=== PATIENT | female | born 1985 | race Caucasian/White ===

== ENCOUNTER 2023-11-28 07:38 | Inpatient (IN) ==
--- NOTE | 2023-11-28 10:26 | History & Physical Report ---
Date of Service November 28, 2023 Assessment & Plan (1) Encounter for induction of labor: (2) Insulin controlled gestational diabetes mellitus (GDM) during : (3) resulting from in vitro fertilization, antepartum: (4) Elderly multigravida: Plan admit, iv, labs. carrion balloon in place. start pit and then plan arom when appropriate. bsg now and q2 in active labor. fhts categ 1. Admission and Anticipated Discharge Date Admission Date: November 28, 2023 History of Present Illness Chief Complaint: induction Primary Care Provider: Britt Villafuerte MD 38yo at 39wks ega presents to LD for planned induction. Patient denies rom, vb. +FM. No ctx. PNC c/b 1. IVF 2. AMA age >40 3. GDM on insulin 4. Polyhydramnios PNL rhpos, ri, gbs neg OBH: x 1 GYNH: nl paps no stds. Allergies Allergy/AdvReac Type Severity Reaction Status Date / Time amoxicillin Allergy Unknown Rash Verified 11/27/23 13:17 Home Medications Medication Instructions Recorded Confirmed Type vit no.95-ferrous 1 tab PO DAILY 02/01/22 11/27/23 History fumarate 28 mg-folic acid 800 mcg tablet () doxylamine 10 mg-pyridoxine (vit 1 tab PO BID #60 tabs 05/19/23 11/27/23 Rx B6) 10 mg tablet,delayed release (Diclegis) promethazine 12.5 mg rectal 12.5 mg MO Q6H PRN nausea and 05/19/23 11/27/23 Rx suppository vomiting #12 ea acetone (urine) test (Ketone Urine #50 ea 07/03/23 11/27/23 Rx Test strips) blood sugar diagnostic (OneTouch #150 ea 07/03/23 11/27/23 Rx Verio test strips) blood-glucose meter (OneTouch #1 ea 07/03/23 11/27/23 Rx Verio Reflect Meter) lancets 33 gauge (OneTouch Delica #150 ea 07/03/23 11/27/23 Rx Plus Lancet) insulin NPH isoph U-100 human 100 10 unit (0.1 mL) subcut QPM #15 mL 05/03/24 08/29/24 Rx unit/mL (3 mL) subcutaneous pen (Novolin N FlexPen) insulin aspart U-100 100 unit/mL 5 unit (0.05 mL) subcut TID #15 mL 08/01/23 11/27/23 Rx (3 mL) subcutaneous pen (Novolog FlexPen U-100 Insulin aspart) pen needle, diabetic 32 gauge x #150 ea 08/01/23 11/27/23 Rx 5/32" (BD Ultra-Fine Alicja Pen Needle) ondansetron HCl 4 mg tablet 4 mg PO DAILY #30 tabs 09/16/23 11/27/23 Rx Patient History Medical History (Updated 11/28/23 @ 10:31 by Kendra Kruse RN) Diabetes in hemorrhage History of chicken pox Human papilloma virus Yeast vaginitis Amenorrhea Anxiety and depression History of PCOS Anxiety Glaucoma Pre-diabetes Metformin HGBA1C 5.7% on 12/11/21 Obesity PCOS (polycystic ovarian syndrome) Surgical History S/P dilatation and curettage polypectomy History of oral surgery H/O LEEP Family History Mother Hypertension Father Skin cancer Brother Hypertension Daughter No problems noted. Grandmother (Maternal) Family history of diabetes mellitus Denies family history of Ovarian cancer Prostate cancer Diabetes Myocardial infarction Breast cancer Colorectal cancer Social History (Updated 05/23/23 @ 10:01 by Rosa Alfonso) Smoking Status: Former smoker Tobacco Type: Cigarettes Age Started Using Tobacco: 18; Age Quit Using Tobacco: 20; Second Hand Exposure: Yes; Do You Dip or Chew Tobacco: No; Hx Alcohol Use: Yes (SOCIAL) Alcohol type: wine Alcohol Intake Frequency: Monthly or Less Hx Substance Use: No Preferred Language: Cuban Communication Ability: Effective Visual Impairment: No Limitations Hearing Ability: Normal Blending Operator Required: No Beliefs That Will Affect Care: None marital status: marital status details: Eric Virgen (38) [phone] Current Living Situation: Spouse and Family Current Living Situation Comment: lives with spouse, daughter, dogs current occupational status: student current occupation: recent grad Feels Safe at Home: Yes Childhood Exposure to Second-Hand Smoke: No Diet: regular Dental Care, Regularly: Yes Physical Activity Frequency: Does not Exercise Seatbelt Use: always Sunscreen Use: Yes Assistive Devices: Contacts and Glasses Review of Systems as per Subjective / HPI Physical Exam Constitutional: WD/WN, vitals as above Respiratory: normal respiratory effort, lungs clear to auscultation Cardiovascular: Rate/Rhythm: regular rate and regular rhythm Gastrointestinal (Abdomen): soft gravid nt efw 8-9# Musculoskeletal: no edema nontender calves Neurologic: grossly normal Psychiatric: A+Ox3, euthymic affect Genitourinary: Manual OB Exam: + cervical dilation (closed), + cervical effacement 50% and + station -2 OB Exam Monitor Tracing: + external FHT monitor used, + external uterine monitor used, + category I and + normal FHT variability PROCEDURE: sse cx visualized, grasped on ant lip with ring forcep, carrion through os and balloon inflated with 40cc sterile water. Spec removed, carrion taped to leg. pt jerri well. Coding Level of Care Code None Diagnoses Encounter for induction of labor Z34.90 Insulin controlled gestational diabetes mellitus (GDM) during O24.414 resulting from in vitro fertilization, antepartum O09.819 Elderly multigravida O09.529
[2023-11-28] MEDS ORDERED: OXYTOCIN 30 UNITS/NSS 30 UNITS/500 ML BAG IV PRN (10:46)
[2023-11-28] MEDS ORDERED: CALCIUM CARBONATE 500 MG CHEWABLE TAB PO PRN (10:46)
[2023-11-28] MEDS ORDERED: LIDOCAINE 1% LOCAL 20 ML VIAL INFIL PRN (10:46)
[2023-11-28 11:15] LABS: Hematocrit (blood only) 32.4 % (37.0-47.0); Hemoglobin 10.5 g/dl (12.0-16.0); Mean Corpuscular Hemoglobin 25.5 pg (25.0-34.0); Mean Corpuscular Hgb Conc 32.4 g/dL (32.0-36.0); Mean Corpuscular Volume 78.6 fL (80.0-100.0); Mean Platelet Volume 10.9 fL (9.4-12.4); Platelet Count 222 K/uL (130-400); RDW Coefficient of Variation 13.5 % (11.5-14.5); RDW Standard Deviation 38.5 fL (36.4-46.3); Red Blood Count 4.12 M/uL (4.20-5.40); White Blood Count 8.43 K/ul (4.8-10.8)
[2023-11-28] MEDS: LACTATED RINGER'S 1,000 ML IV PRN (11:44)
[2023-11-28] MEDS: OXYTOCIN 30 UNITS/NSS 30 UNITS/500 ML BAG IV PRN (11:45)
--- NOTE | 2023-11-28 13:59 | Labor Progress Brief Note ---
Date of Service November 28, 2023 Subjective pt denies pain, feels cramps Assessment & Plan (1) Encounter for induction of labor: (2) Insulin controlled gestational diabetes mellitus (GDM) during : (3) resulting from in vitro fertilization, antepartum: (4) Elderly multigravida: Plan c/w pit, see how arom helps labor pattern. fhts categ 1. Admission and Anticipated Discharge Date Admission Date: November 28, 2023 Physical Exam Constitutional: WD/WN, vitals as above Genitourinary: Manual OB Exam: + cervical dilation 5 cm, + cervical effacement 50%, + station -2 and + amniotic fluid (arom) clear OB Exam Monitor Tracing: + external FHT monitor used, + external uterine monitor used (irreg), + category I and + normal FHT variability Results & Data Vital Signs (Past 12 Hours) Vital Signs Temp Pulse Resp BP 11/28/23 12:47 71 137/69 11/28/23 11:52 74 125/77 11/28/23 10:54 99.5 F 82 18 128/84 11/28/23 10:44 82 128/84 11/28/23 10:43 18 11/28/23 10:43 99.5 F 18 Coding Level of Care Code None Diagnoses Encounter for induction of labor Z34.90 Insulin controlled gestational diabetes mellitus (GDM) during O24.414 resulting from in vitro fertilization, antepartum O09.819 Elderly multigravida O09.529
[2023-11-28] MEDS ORDERED: ePHEDrine sulfate 50 MG/ML AMP IV PRN (15:32)
[2023-11-28] MEDS ORDERED: NALBUPHINE HCL INJ 10 MG/ML AMP IV PRN (15:32)
[2023-11-28] MEDS ORDERED: SODIUM CHLORIDE 0.9% PF INJ 10 ML VIAL EPI PRN (15:32)
[2023-11-28] MEDS ORDERED: LIDOCAINE 2% MPF LOCAL 5 ML VIAL EPI PRN (15:32)
[2023-11-28] MEDS ORDERED: diphenhydrAMINE 50 MG/ML VIAL IV PRN (15:32)
[2023-11-28] MEDS ORDERED: NALOXONE HCL 1 MG in SODIUM CHLORIDE 0.9% 1,000 ML IV PRN (15:32)
[2023-11-28] MEDS ORDERED: NALOXONE HCL 0.4 MG/1 ML VIAL/CARP IV PRN (15:32)
[2023-11-28] MEDS ORDERED: ROPIVACAINE 0.5% PF 5 MG/ML 20 ML VIAL EPI PRN (15:32)
--- NOTE | 2023-11-28 15:32 | Anesthesiology Consultation ---
Date of Service November 28, 2023 Assessment & Plan (1) Encounter for pre-operative examination: Chart Review Chart Review: Patient NOT seen in Pre Admission Testing and Acceptable Risk for Labor Epidural Consults Requested none History Height/Weight Height: 5 ft 6 in Weight: 104.326 kg Allergies Allergy/AdvReac Type Severity Reaction Status Date / Time amoxicillin Allergy Unknown Rash Verified 11/27/23 13:17 Medications Home Medications Medication Instructions Recorded Confirmed Last Taken vit no.95-ferrous 1 tab PO DAILY 02/01/22 11/28/23 11/27/23 07:00 fumarate 28 mg-folic acid 800 mcg tablet () doxylamine 10 mg-pyridoxine (vit 1 tab PO BID #60 tabs 05/19/23 11/27/23 Unknown B6) 10 mg tablet,delayed release (Diclegis) promethazine 12.5 mg rectal 12.5 mg ME Q6H PRN nausea and 05/19/23 11/27/23 Unknown suppository vomiting #12 ea acetone (urine) test (Ketone Urine #50 ea 07/03/23 11/27/23 Unknown Test strips) blood sugar diagnostic (OneTouch #150 ea 07/03/23 11/27/23 Unknown Verio test strips) blood-glucose meter (OneTouch #1 ea 07/03/23 11/27/23 Unknown Verio Reflect Meter) lancets 33 gauge (OneTouch Delica #150 ea 07/03/23 11/27/23 Unknown Plus Lancet) insulin NPH isoph U-100 human 100 10 unit (0.1 mL) subcut QPM #15 mL 08/01/23 11/27/23 Unknown unit/mL (3 mL) subcutaneous pen (Novolin N FlexPen) insulin aspart U-100 100 unit/mL 5 unit (0.05 mL) subcut TID #15 mL 08/01/23 11/28/23 11/28/23 07:00 (3 mL) subcutaneous pen (Novolog FlexPen U-100 Insulin aspart) pen needle, diabetic 32 gauge x #150 ea 08/01/23 11/27/23 Unknown 5/32" (BD Ultra-Fine Alicja Pen Needle) ondansetron HCl 4 mg tablet 4 mg PO DAILY #30 tabs 09/16/23 11/28/23 11/27/23 07:00 aspirin 1 tab PO DAILY 11/28/23 11/28/23 11/27/23 07:00 ferrous sulfate 325 mg (65 mg 325 mg PO Q OTHER DAY 11/28/23 11/28/23 11/26/23 07:00 iron) tablet (iron) Active Medications Generic Name Dose Route Start Last Admin Trade Name Dashq PRN Reason Stop Dose Admin Lactated Ringer's 1,000 mls @ 125 mls/hr 11/28/23 10:46 11/28/23 11:44 Lr IV 11/30/23 10:45 125 mls/hr .Q8H PRN Administration L&D Protocol Protocol Oxytocin 30 units in 500 mls @ 11 mls/hr 11/28/23 10:48 11/28/23 14:15 Pitocin 30 Units/Nss IV 11/30/23 10:47 0.66 units/hr .Q24H PRN 11 mls/hr Labor Induction/Augmentation Titration Protocol 0.66 UNITS/HR Past Medical History Medical History Diabetes in hemorrhage History of chicken pox Human papilloma virus Yeast vaginitis Amenorrhea Anxiety and depression History of PCOS Anxiety Glaucoma Pre-diabetes Metformin HGBA1C 5.7% on 12/11/21 Obesity PCOS (polycystic ovarian syndrome) Past Family History Family History Mother Hypertension Father Skin cancer Brother Hypertension Daughter No problems noted. Grandmother (Maternal) Family history of diabetes mellitus Denies family history of Ovarian cancer Prostate cancer Diabetes Myocardial infarction Breast cancer Colorectal cancer Past Surgical History Surgical History S/P dilatation and curettage polypectomy History of oral surgery H/O LEEP Social History Smoking Status: Former smoker tobacco type: cigarettes Do You Dip or Chew Tobacco: No Hx Alcohol Use: No Alcohol type: wine alcohol intake frequency: other Hx Substance Use: No substance use type: does not use Physical Exam Vital Signs Last Vital Signs Temp 99.3 F 11/28/23 13:58 Pulse 67 11/28/23 13:58 Resp 16 11/28/23 13:58 BP 143/78 H 11/28/23 13:58 Testing Laboratory Results 11/28/23 10:57 11/28/23 11/28/23 14:08 11:38 POC Glucose 85 71
[2023-11-28] MEDS: BUPIVACAINE 0.25% PF 30 ML VIAL EPI STA (15:49)
[2023-11-28] MEDS: LIDOCAINE 2%/EPINEPHRINE 1:200,000 20 ML PF EPI STA (15:49)
[2023-11-28] MEDS: fentANYL 2 MCG/ML BUPIVacaine 0.125%-NSS 100ML BAG ONE (15:50)
[2023-11-28] MEDS: fentaNYL citrate PF 100 MCG/2 ML VIAL EPI STA (16:04)
[2023-11-28] MEDS: fentaNYL citrate PF 100 MCG/2 ML VIAL ONE (16:04)
[2023-11-28] MEDS: SODIUM CHLORIDE 0.9% PF INJ 10 ML VIAL EPI STA (16:04)
[2023-11-28] MEDS: LIDOCAINE 2%/EPINEPHRINE 1:200,000 20 ML PF ONE (16:05)
[2023-11-28] MEDS: BUPIVACAINE 0.25% PF 30 ML VIAL ONE (16:05)
[2023-11-28] MEDS: SODIUM CHLORIDE 0.9% PF INJ 10 ML VIAL ONE (16:05)
--- NOTE | 2023-11-28 18:20 | Labor Progress Brief Note ---
Date of Service November 28, 2023 Subjective now comfortable with epidural Assessment & Plan (1) Encounter for induction of labor: Plan cont to increase pit to achieve labor pattern. fhts categ 1. Admission and Anticipated Discharge Date Admission Date: November 28, 2023 Physical Exam Constitutional: WD/WN, vitals as above Genitourinary: Manual OB Exam: + cervical dilation 5 cm, + cervical effacement (75%) and + station -2 OB Exam Monitor Tracing: + external FHT monitor used, + external uterine monitor used (q2-3), + category I and + normal FHT variability pit @ 19 Results & Data Vital Signs (Past 12 Hours) Vital Signs Temp Pulse Resp BP Pulse Ox 11/28/23 18:13 60 100 11/28/23 18:12 56 L 91 11/28/23 18:09 52 L 129/66 11/28/23 18:08 59 L 100 11/28/23 18:06 54 L 93 11/28/23 18:03 57 L 100 11/28/23 17:58 61 100 11/28/23 17:56 57 L 116/62 11/28/23 17:55 60 90 11/28/23 17:53 53 L 100 11/28/23 17:50 16 11/28/23 17:50 97.9 F 16 11/28/23 17:48 62 98 11/28/23 17:43 66 90 11/28/23 17:42 68 92 11/28/23 17:41 71 136/60 11/28/23 17:38 71 100 11/28/23 17:33 60 100 11/28/23 17:30 71 90 11/28/23 17:28 60 100 11/28/23 17:24 64 112/57 L 11/28/23 17:23 62 100 11/28/23 17:18 64 100 11/28/23 17:13 61 100 11/28/23 17:10 59 L 124/66 11/28/23 17:08 62 100 11/28/23 17:03 62 99 11/28/23 16:58 86 L 11/28/23 16:58 72 11/28/23 16:58 74 89 L 11/28/23 16:56 62 112/55 L 11/28/23 16:55 16 11/28/23 16:55 98.6 F 16 11/28/23 16:53 68 100 11/28/23 16:51 73 91 11/28/23 16:48 71 98 11/28/23 16:43 71 100 11/28/23 16:39 68 146/79 H 11/28/23 16:38 70 100 11/28/23 16:33 71 100 11/28/23 16:28 76 100 11/28/23 16:24 71 143/78 H 11/28/23 16:23 74 100 11/28/23 16:19 77 93 11/28/23 16:18 74 100 11/28/23 16:13 73 100 11/28/23 16:10 70 145/77 H 11/28/23 16:08 78 100 11/28/23 16:03 72 100 11/28/23 15:58 79 100 11/28/23 15:54 98.6 F 88 16 131/73 11/28/23 15:53 82 100 11/28/23 15:48 79 100 11/28/23 15:46 71 128/70 11/28/23 15:43 71 100 11/28/23 15:39 85 152/79 H 11/28/23 15:38 89 100 11/28/23 14:55 18 11/28/23 14:55 98.2 F 18 11/28/23 13:58 99.3 F 67 16 143/78 H 11/28/23 12:47 71 137/69 11/28/23 11:52 74 125/77 11/28/23 10:54 99.5 F 82 18 128/84 11/28/23 10:44 82 128/84 11/28/23 10:43 18 11/28/23 10:43 99.5 F 18 Coding Level of Care Code None Diagnoses Encounter for induction of labor Z34.90
[2023-11-28] MEDS: ePHEDrine sulfate 50 MG/ML AMP ONE (19:13)
--- NOTE | 2023-11-28 20:28 | Labor Progress Brief Note ---
Date of Service November 28, 2023 Subjective she vomited. feels some pressure. Assessment & Plan (1) Encounter for induction of labor: (2) Insulin controlled gestational diabetes mellitus (GDM) during : (3) resulting from in vitro fertilization, antepartum: (4) Elderly multigravida: Plan good cx change. fhts categ 1. c/w pit Admission and Anticipated Discharge Date Admission Date: November 28, 2023 Physical Exam Constitutional: WD/WN, vitals as above Genitourinary: Manual OB Exam: + cervical dilation 7 cm, + cervical effacement (75%) and + station -1 OB Exam Monitor Tracing: + external FHT monitor used, + external uterine monitor used (q2-3), + category I, + normal FHT variability and + early decelerations present Results & Data Vital Signs (Past 12 Hours) Vital Signs Temp Pulse Resp BP Pulse Ox 11/28/23 20:25 68 120/57 L 100 11/28/23 20:21 88 87 L 11/28/23 20:20 86 99 11/28/23 20:15 71 100 11/28/23 20:10 100 11/28/23 20:10 69 11/28/23 20:10 71 133/59 L 11/28/23 20:05 68 100 11/28/23 20:00 72 100 11/28/23 19:56 83 128/61 11/28/23 19:55 85 100 11/28/23 19:54 90 89 L 11/28/23 19:50 123 H 100 11/28/23 19:49 112 H 93 11/28/23 19:45 67 100 11/28/23 19:42 77 92 11/28/23 19:40 67 123/73 100 11/28/23 19:36 67 88 L 11/28/23 19:35 62 100 11/28/23 19:31 64 82 L 11/28/23 19:30 63 100 11/28/23 19:25 69 100 11/28/23 19:24 62 120/64 11/28/23 19:21 65 91 11/28/23 19:20 65 100 11/28/23 19:15 64 100 11/28/23 19:10 63 120/66 11/28/23 19:03 61 100 11/28/23 19:01 98.2 F 18 11/28/23 18:58 61 100 11/28/23 18:54 64 129/66 11/28/23 18:53 65 100 11/28/23 18:50 18 11/28/23 18:50 98.8 F 18 11/28/23 18:48 65 100 11/28/23 18:47 71 92 11/28/23 18:43 59 L 100 11/28/23 18:41 54 L 136/65 11/28/23 18:38 53 L 100 11/28/23 18:36 57 L 93 11/28/23 18:33 57 L 100 11/28/23 18:28 69 100 11/28/23 18:25 58 L 130/69 11/28/23 18:23 65 100 11/28/23 18:18 56 L 100 11/28/23 18:13 60 100 11/28/23 18:12 56 L 91 11/28/23 18:09 52 L 129/66 11/28/23 18:08 59 L 100 11/28/23 18:06 54 L 93 11/28/23 18:03 57 L 100 11/28/23 17:58 61 100 11/28/23 17:56 57 L 116/62 11/28/23 17:55 60 90 11/28/23 17:53 53 L 100 11/28/23 17:50 16 11/28/23 17:50 97.9 F 16 11/28/23 17:48 62 98 11/28/23 17:43 66 90 11/28/23 17:42 68 92 11/28/23 17:41 71 136/60 11/28/23 17:38 71 100 11/28/23 17:33 60 100 11/28/23 17:30 71 90 11/28/23 17:28 60 100 11/28/23 17:24 64 112/57 L 11/28/23 17:23 62 100 11/28/23 17:18 64 100 11/28/23 17:13 61 100 11/28/23 17:10 59 L 124/66 11/28/23 17:08 62 100 11/28/23 17:03 62 99 11/28/23 16:58 86 L 11/28/23 16:58 72 11/28/23 16:58 74 89 L 11/28/23 16:56 62 112/55 L 11/28/23 16:55 16 11/28/23 16:55 98.6 F 16 11/28/23 16:53 68 100 11/28/23 16:51 73 91 11/28/23 16:48 71 98 11/28/23 16:43 71 100 11/28/23 16:39 68 146/79 H 11/28/23 16:38 70 100 11/28/23 16:33 71 100 11/28/23 16:28 76 100 11/28/23 16:24 71 143/78 H 11/28/23 16:23 74 100 11/28/23 16:19 77 93 11/28/23 16:18 74 100 11/28/23 16:13 73 100 11/28/23 16:10 70 145/77 H 11/28/23 16:08 78 100 11/28/23 16:03 72 100 11/28/23 15:58 79 100 11/28/23 15:54 98.6 F 88 16 131/73 11/28/23 15:53 82 100 11/28/23 15:48 79 100 11/28/23 15:46 71 128/70 11/28/23 15:43 71 100 11/28/23 15:39 85 152/79 H 11/28/23 15:38 89 100 11/28/23 14:55 18 11/28/23 14:55 98.2 F 18 11/28/23 13:58 99.3 F 67 16 143/78 H 11/28/23 12:47 71 137/69 11/28/23 11:52 74 125/77 11/28/23 10:54 99.5 F 82 18 128/84 11/28/23 10:44 82 128/84 11/28/23 10:43 18 11/28/23 10:43 99.5 F 18 Coding Level of Care Code None Diagnoses Encounter for induction of labor Z34.90 Insulin controlled gestational diabetes mellitus (GDM) during O24.414 resulting from in vitro fertilization, antepartum O09.819 Elderly multigravida O09.529
[2023-11-28] MEDS: fentaNYL citrate PF 100 MCG/2 ML VIAL EPI PRN (21:41)
[2023-11-28] MEDS: BUPIVACAINE 0.25% PF 30 ML VIAL EPI PRN (21:42)
--- NOTE | 2023-11-28 21:44 | Anesthesia Procedure Note ---
Date of Service November 28, 2023 Anesthesia Epidural Re-Dose Vital Signs Temp Pulse Resp BP Pulse Ox 98.2 F 63 18 129/65 100 11/28/23 19:01 11/28/23 21:40 11/28/23 19:01 11/28/23 21:39 11/28/23 21:40 Notes Pain Intensity: 6 Dilatation (cm): 7.0 Effacement (%): 75 Called by nursing to evaluate epidural as the patient is having increased pain. The epidural was re-dosed with the following medications (all medications via epidural route) after negative aspiration of the epidural catheter for CSF/HEME. Bupivacaine (4ml) with 100 mcg Fentanyl After Epidural Re-Dose Mental Status: alert / awake / arousable Pain: improving with treatment Airway Patency, RR, SpO2: stable & adequate BP & HR: stable & adequate
[2023-11-28] MEDS: NURSING L&D Epidural Breakthrough Pain Update ONE (22:35)
[2023-11-28] MEDS ORDERED: ONDANSETRON INJ 2 MG/ML 2 ML VIAL IV PRN (23:34)
[2023-11-28] MEDS: fentANYL 2 MCG/ML BUPIVacaine 0.125%-NSS 100ML BAG EPI PRN (23:38)
[2023-11-28] MEDS: ONDANSETRON INJ 2 MG/ML 2 ML VIAL ONE (23:40)
--- NOTE | 2023-11-29 00:28 | Anesthesia Procedure Note ---
Date of Service November 29, 2023 Anesthesia Epidural Re-Dose Vital Signs Temp Pulse Resp BP Pulse Ox 99.3 F 80 18 124/61 100 11/29/23 00:10 11/29/23 00:25 11/29/23 00:27 11/29/23 00:17 11/29/23 00:25 Notes Pain Intensity: 8 Dilatation (cm): 9.0 Effacement (%): 100 Called by nursing to evaluate epidural as the patient is having increased pain. The epidural was re-dosed with the following medications (all medications via epidural route) after negative aspiration of the epidural catheter for CSF/HEME. Bupivacaine (4ml) with 100 mcg Fentanyl After Epidural Re-Dose Mental Status: alert / awake / arousable Pain: improving with treatment Airway Patency, RR, SpO2: stable & adequate BP & HR: stable & adequate
[2023-11-29] MEDS: miSOPROStoL 200 MCG TAB ONE ×2 (00:59→19:39)
--- NOTE | 2023-11-29 01:07 | Delivery Summary ---
Vaginal Delivery Summary Date of Service November 29, 2023 Vaginal Delivery Summary The patient dilated to complete and pushed to deliver a viable female Apgars 8 and 9 via over small vaginal laceration. Mouth and nose bulb suctioned at perineum. Shoulders and body delivered with ease. was vigorous and crying at . Cord clamped at 30 seconds of life and to maternal abdomen where the cord was then doubly clamped and cut. Placenta delivered spontaneously and intact, three-vessel cord. Hemostasis not achieved with dilute pitocin and uterine massage and drainage of the bladder for approximately 75 cc under sterile conditions. 1000mcg rectal cytotec placed. Hemostasis improved. No evidence of retained products x 1 sweep. Vaginal laceration reapproximated with single figure of eight suture of 3-0 vicryl. Cervix and sulci intact. QBL 706 cc. Mother and baby stable in recovery. [facility] Vaginal Delivery Charge Delivery Type Details:
[2023-11-29] MEDS ORDERED: oxyCODONE/ACETAMINOPHEN 5mg/325mg TAB PO PRN (01:14)
[2023-11-29] MEDS ORDERED: OXYTOCIN 30 UNITS/NSS 30 UNITS/500 ML BAG IV PRN (01:14)
[2023-11-29] MEDS ORDERED: HYDROCORTISONE ACETATE 25 MG SUPP PR PRN (01:14)
[2023-11-29] MEDS: miSOPROStoL 200 MCG TAB PR ONE ×2 (01:47→18:15)
[2023-11-29] MEDS: DIPHTHER/TETAN/PERTUS Vaccine (Tdap, Adol/Adult) 0.5mL IM ONE (01:48)
[2023-11-29] MEDS: BENZOCAINE 20% SPRY 85 APPLN/85 GM CAN EXT PRN (02:36)
[2023-11-29] MEDS ORDERED: SODIUM CHLORIDE 0.9% 250 ML IV PRN (03:30)
[2023-11-29] MEDS: OXYTOCIN 20 UNITS/LR 1,002 ML IV SCH (04:28)
[2023-11-29 06:41] LABS: Hematocrit (blood only) 27.5 % (37.0-47.0); Hemoglobin 8.9 g/dl (12.0-16.0)
--- NOTE | 2023-11-29 08:55 | Anesthesiology Progress Note ---
Date of Service November 29, 2023 Anesthesia Post Procedure Vital Signs Vital Signs: Temp Pulse Pulse Resp BP BP Pulse Ox 11/29/23 03:45 37.5 C 78 18 124/81 98 11/29/23 03:02 36.9 C 18 11/29/23 03:02 81 125/60 11/29/23 02:48 97 H 138/60 11/29/23 02:32 16 11/29/23 02:17 80 116/55 L 11/29/23 02:03 16 11/29/23 02:02 89 130/60 11/29/23 01:48 16 11/29/23 01:48 82 139/60 11/29/23 01:32 18 11/29/23 01:32 78 128/76 11/29/23 01:19 18 11/29/23 01:19 89 179/68 H 11/29/23 01:03 18 11/29/23 01:03 88 137/60 11/29/23 01:00 83 100 11/29/23 00:55 93 H 100 11/29/23 00:50 89 98 11/29/23 00:45 99 H 99 11/29/23 00:40 107 H 100 11/29/23 00:39 122 H 93 11/29/23 00:35 85 100 11/29/23 00:33 82 121/66 93 11/29/23 00:31 126/68 11/29/23 00:30 79 96 11/29/23 00:29 72 130/66 11/29/23 00:27 18 11/29/23 00:27 81 18 126/66 11/29/23 00:25 80 100 11/29/23 00:20 79 100 11/29/23 00:17 81 124/61 11/29/23 00:15 89 100 11/29/23 00:10 37.4 C 85 18 100 11/29/23 00:05 80 99 11/29/23 00:02 73 139/63 11/29/23 00:00 79 97 11/28/23 23:58 79 89 L 11/28/23 23:55 85 100 11/28/23 23:50 77 100 11/28/23 23:48 75 133/65 11/28/23 23:45 78 100 11/28/23 23:40 84 100 11/28/23 23:35 79 100 11/28/23 23:32 95 H 144/68 H 11/28/23 23:30 129 H 99 11/28/23 23:25 72 100 11/28/23 23:20 73 100 11/28/23 23:17 72 132/60 11/28/23 23:15 74 100 11/28/23 23:10 72 100 11/28/23 23:06 80 89 L 11/28/23 23:05 80 97 11/28/23 23:00 78 100 11/28/23 22:59 86 91 11/28/23 22:55 92 H 100 11/28/23 22:50 108 H 100 11/28/23 22:47 96 H 92 11/28/23 22:45 76 99 11/28/23 22:40 68 100 11/28/23 22:35 72 100 11/28/23 22:31 73 116/56 L 11/28/23 22:30 74 100 11/28/23 22:25 67 100 11/28/23 22:20 65 100 11/28/23 22:19 66 119/59 L 11/28/23 22:15 78 100 11/28/23 22:12 18 11/28/23 22:12 37.1 C 18 11/28/23 22:10 77 100 11/28/23 22:07 74 94 11/28/23 22:05 77 100 11/28/23 22:04 67 139/66 11/28/23 22:00 88 100 11/28/23 21:59 67 117/61 11/28/23 21:57 71 110/60 11/28/23 21:56 78 114/56 L 11/28/23 21:55 91 H 100 11/28/23 21:53 20 11/28/23 21:53 20 11/28/23 21:51 100 H 142/64 H 11/28/23 21:50 125 H 99 11/28/23 21:48 86 91 11/28/23 21:47 73 128/72 11/28/23 21:45 74 136/73 100 11/28/23 21:43 74 127/67 11/28/23 21:40 63 100 11/28/23 21:39 64 129/65 11/28/23 21:35 37.1 C 74 18 100 08/30/24 21:30 66 100 11/28/23 21:25 71 100 11/28/23 21:24 66 112/58 L 85 L 11/28/23 21:20 63 100 11/28/23 21:18 79 94 11/28/23 21:15 68 100 11/28/23 21:10 62 100 11/28/23 21:09 62 118/56 L 11/28/23 21:05 61 100 11/28/23 21:00 63 99 11/28/23 20:55 67 100 11/28/23 20:50 65 100 11/28/23 20:45 66 100 11/28/23 20:40 66 100 11/28/23 20:39 69 111/59 L 11/28/23 20:35 62 100 11/28/23 20:30 73 100 11/28/23 20:25 68 120/57 L 100 11/28/23 20:21 88 87 L 11/28/23 20:20 86 99 11/28/23 20:15 71 100 11/28/23 20:10 100 11/28/23 20:10 69 11/28/23 20:10 71 133/59 L 11/28/23 20:05 68 100 11/28/23 20:00 72 100 11/28/23 19:56 83 128/61 11/28/23 19:55 85 100 11/28/23 19:54 90 89 L 11/28/23 19:50 123 H 100 11/28/23 19:49 112 H 93 11/28/23 19:45 67 100 11/28/23 19:42 77 92 11/28/23 19:40 67 123/73 100 11/28/23 19:36 67 88 L 11/28/23 19:35 62 100 11/28/23 19:31 64 82 L 11/28/23 19:30 63 100 11/28/23 19:25 69 100 11/28/23 19:24 62 120/64 11/28/23 19:21 65 91 11/28/23 19:20 65 100 11/28/23 19:15 64 100 11/28/23 19:10 63 120/66 11/28/23 19:03 61 100 11/28/23 19:01 36.8 C 18 11/28/23 18:58 61 100 11/28/23 18:54 64 129/66 11/28/23 18:53 65 100 11/28/23 18:50 18 11/28/23 18:50 37.1 C 18 11/28/23 18:48 65 100 11/28/23 18:47 71 92 11/28/23 18:43 59 L 100 11/28/23 18:41 54 L 136/65 11/28/23 18:38 53 L 100 11/28/23 18:36 57 L 93 11/28/23 18:33 57 L 100 11/28/23 18:28 69 100 11/28/23 18:25 58 L 130/69 11/28/23 18:23 65 100 11/28/23 18:18 56 L 100 11/28/23 18:13 60 100 11/28/23 18:12 56 L 91 11/28/23 18:09 52 L 129/66 11/28/23 18:08 59 L 100 11/28/23 18:06 54 L 93 11/28/23 18:03 57 L 100 11/28/23 17:58 61 100 11/28/23 17:56 57 L 116/62 11/28/23 17:55 60 90 11/28/23 17:53 53 L 100 11/28/23 17:50 16 11/28/23 17:50 36.6 C 16 11/28/23 17:48 62 98 11/28/23 17:43 66 90 11/28/23 17:42 68 92 11/28/23 17:41 71 136/60 11/28/23 17:38 71 100 11/28/23 17:33 60 100 11/28/23 17:30 71 90 11/28/23 17:28 60 100 11/28/23 17:24 64 112/57 L 11/28/23 17:23 62 100 11/28/23 17:18 64 100 11/28/23 17:13 61 100 11/28/23 17:10 59 L 124/66 11/28/23 17:08 62 100 11/28/23 17:03 62 99 11/28/23 16:58 86 L 11/28/23 16:58 72 11/28/23 16:58 74 89 L 11/28/23 16:56 62 112/55 L 11/28/23 16:55 16 11/28/23 16:55 37.0 C 16 11/28/23 16:53 68 100 11/28/23 16:51 73 91 11/28/23 16:48 71 98 11/28/23 16:43 71 100 11/28/23 16:39 68 146/79 H 11/28/23 16:38 70 100 11/28/23 16:33 71 100 11/28/23 16:28 76 100 11/28/23 16:24 71 143/78 H 11/28/23 16:23 74 100 11/28/23 16:19 77 93 11/28/23 16:18 74 100 11/28/23 16:13 73 100 11/28/23 16:10 70 145/77 H 11/28/23 16:08 78 100 11/28/23 16:03 72 100 11/28/23 15:58 79 100 11/28/23 15:54 37.0 C 88 16 131/73 11/28/23 15:53 82 100 11/28/23 15:48 79 100 11/28/23 15:46 71 128/70 11/28/23 15:43 71 100 11/28/23 15:39 85 152/79 H 11/28/23 15:38 89 100 11/28/23 14:55 18 11/28/23 14:55 36.8 C 18 11/28/23 13:58 37.4 C 67 16 143/78 H 11/28/23 12:47 71 137/69 11/28/23 11:52 74 125/77 11/28/23 10:54 37.5 C 82 18 128/84 11/28/23 10:44 82 128/84 11/28/23 10:43 18 11/28/23 10:43 37.5 C 18 O2 Del Method 11/29/23 03:45 Room Air 11/29/23 03:02 11/29/23 03:02 11/29/23 02:48 11/29/23 02:32 11/29/23 02:17 11/29/23 02:03 11/29/23 02:02 11/29/23 01:48 11/29/23 01:48 11/29/23 01:32 11/29/23 01:32 11/29/23 01:19 11/29/23 01:19 11/29/23 01:03 11/29/23 01:03 11/29/23 01:00 11/29/23 00:55 11/29/23 00:50 11/29/23 00:45 11/29/23 00:40 11/29/23 00:39 11/29/23 00:35 11/29/23 00:33 11/29/23 00:31 11/29/23 00:30 11/29/23 00:29 11/29/23 00:27 11/29/23 00:27 11/29/23 00:25 11/29/23 00:20 11/29/23 00:17 11/29/23 00:15 11/29/23 00:10 11/29/23 00:05 11/29/23 00:02 11/29/23 00:00 11/28/23 23:58 11/28/23 23:55 11/28/23 23:50 11/28/23 23:48 11/28/23 23:45 11/28/23 23:40 11/28/23 23:35 11/28/23 23:32 11/28/23 23:30 11/28/23 23:25 11/28/23 23:20 11/28/23 23:17 11/28/23 23:15 11/28/23 23:10 11/28/23 23:06 11/28/23 23:05 11/28/23 23:00 11/28/23 22:59 11/28/23 22:55 11/28/23 22:50 11/28/23 22:47 11/28/23 22:45 11/28/23 22:40 11/28/23 22:35 11/28/23 22:31 11/28/23 22:30 11/28/23 22:25 11/28/23 22:20 11/28/23 22:19 11/28/23 22:15 11/28/23 22:12 11/28/23 22:12 11/28/23 22:10 11/28/23 22:07 11/28/23 22:05 11/28/23 22:04 11/28/23 22:00 11/28/23 21:59 11/28/23 21:57 11/28/23 21:56 11/28/23 21:55 11/28/23 21:53 11/28/23 21:53 11/28/23 21:51 11/28/23 21:50 11/28/23 21:48 11/28/23 21:47 11/28/23 21:45 11/28/23 21:43 11/28/23 21:40 11/28/23 21:39 11/28/23 21:35 11/28/23 21:30 11/28/23 21:25 11/28/23 21:24 11/28/23 21:20 11/28/23 21:18 11/28/23 21:15 11/28/23 21:10 11/28/23 21:09 11/28/23 21:05 11/28/23 21:00 11/28/23 20:55 11/28/23 20:50 11/28/23 20:45 11/28/23 20:40 11/28/23 20:39 11/28/23 20:35 11/28/23 20:30 11/28/23 20:25 11/28/23 20:21 11/28/23 20:20 11/28/23 20:15 11/28/23 20:10 11/28/23 20:10 11/28/23 20:10 11/28/23 20:05 11/28/23 20:00 11/28/23 19:56 11/28/23 19:55 11/28/23 19:54 11/28/23 19:50 11/28/23 19:49 11/28/23 19:45 11/28/23 19:42 11/28/23 19:40 11/28/23 19:36 11/28/23 19:35 11/28/23 19:31 11/28/23 19:30 11/28/23 19:25 11/28/23 19:24 11/28/23 19:21 11/28/23 19:20 11/28/23 19:15 11/28/23 19:10 11/28/23 19:03 11/28/23 19:01 11/28/23 18:58 11/28/23 18:54 11/28/23 18:53 11/28/23 18:50 11/28/23 18:50 11/28/23 18:48 11/28/23 18:47 11/28/23 18:43 11/28/23 18:41 11/28/23 18:38 11/28/23 18:36 11/28/23 18:33 11/28/23 18:28 11/28/23 18:25 11/28/23 18:23 11/28/23 18:18 11/28/23 18:13 11/28/23 18:12 11/28/23 18:09 11/28/23 18:08 11/28/23 18:06 11/28/23 18:03 11/28/23 17:58 11/28/23 17:56 11/28/23 17:55 11/28/23 17:53 11/28/23 17:50 11/28/23 17:50 11/28/23 17:48 11/28/23 17:43 11/28/23 17:42 11/28/23 17:41 11/28/23 17:38 11/28/23 17:33 11/28/23 17:30 11/28/23 17:28 11/28/23 17:24 11/28/23 17:23 11/28/23 17:18 11/28/23 17:13 11/28/23 17:10 11/28/23 17:08 11/28/23 17:03 11/28/23 16:58 11/28/23 16:58 11/28/23 16:58 11/28/23 16:56 11/28/23 16:55 11/28/23 16:55 11/28/23 16:53 11/28/23 16:51 11/28/23 16:48 11/28/23 16:43 11/28/23 16:39 11/28/23 16:38 11/28/23 16:33 11/28/23 16:28 11/28/23 16:24 11/28/23 16:23 11/28/23 16:19 11/28/23 16:18 11/28/23 16:13 11/28/23 16:10 11/28/23 16:08 11/28/23 16:03 11/28/23 15:58 11/28/23 15:54 11/28/23 15:53 11/28/23 15:48 11/28/23 15:46 11/28/23 15:43 11/28/23 15:39 11/28/23 15:38 11/28/23 14:55 11/28/23 14:55 11/28/23 13:58 11/28/23 12:47 11/28/23 11:52 11/28/23 10:54 11/28/23 10:44 11/28/23 10:43 11/28/23 10:43 Pain Intensity Lower Abdomen: Pain Intensity: 6 Transfer of Care Handoff Completed per policy Notes Mental Status: alert / awake / arousable Patient Amnestic to Procedure: Yes Nausea / Vomiting: adequately controlled Pain: adequately controlled Airway Patency, RR, SpO2: stable & adequate BP & HR: stable & adequate Hydration State: stable & adequate Anesthetic Complications: no major complications apparent
--- NOTE | 2023-11-29 08:55 | Anesthesia Procedure Note ---
Date of Service November 29, 2023 Anesthesia Post Epidural Note Vital Signs Vital Signs: Temp Pulse Resp BP Pulse Ox O2 Del Method 37.5 C 78 18 124/81 98 Room Air 11/29/23 03:45 11/29/23 03:45 11/29/23 03:45 11/29/23 03:45 11/29/23 03:45 11/29/23 03:45 Pain Intensity Lower Abdomen: Pain Intensity: 6 Notes Mental Status: alert / awake / arousable Nausea / Vomiting: adequately controlled Pain: adequately controlled Airway Patency, RR, SpO2: stable & adequate BP & HR: stable & adequate Hydration State: stable & adequate Neuraxial Anesthesia: was administered and sensory block is resolving Anesthetic Complications: no major complications apparent and Pt Satisfied with anesthetic care Epidural: Removed without complications and With tip intact
[2023-11-29] MEDS: PRENATAL VITAMIN 1 TAB PO SCH (08:59)
[2023-11-29] MEDS: DOCUSATE SODIUM 100 MG CAP PO SCH (09:00)
[2023-11-29] MEDS: IBUPROFEN 600 MG TAB PO PRN (16:17)
[2023-11-29] MEDS: ACETAMINOPHEN 325 MG TAB PO PRN (16:17)
--- NOTE | 2023-11-29 18:38 | Obstetrical Progress Note ---
Date of Service November 29, 2023 Assessment & Plan Admission and Anticipated Discharge Date Admission Date: November 28, 2023 Subjective Patient had late hemorrhage approximately 409 cc weight and then another 45 cc later on palpation I was able to palpate the uterus fundus height was high with using a sterile glove and verbal patient position able to perform some sweeping of the cervix and clot removal I felt there were no more clots in the uterus no placenta was noted. Bleeding improved there was a little further bleeding later thus Cytotec 600 mcg administered rectally. Will check a blood count now and monitor closely the bleeding is not heavy enough at this stage to warrant a trip to the operating room to evaluate for retained placenta however we will keep a close eye on her Results & Data Vital Signs (Past 12 Hours) Vital Signs Temp Pulse Resp BP Pulse Ox O2 Del Method 11/29/23 16:20 99.1 F 83 20 122/76 99 Room Air 11/29/23 13:45 98.6 F 86 18 114/72 98 Room Air 11/29/23 08:55 99.1 F 83 18 116/76 99 Room Air PG Care Time/CCT Total # of Minutes Spent Total Time Spent with Patient: Total time spent is greater than 50% in coordination of care (as documented) at patient's floor/unit and/or counseling patient: Coding Level of Care Code None
[2023-11-29 19:00] LABS: Hematocrit (blood only) 24.6 % (37.0-47.0); Hemoglobin 7.9 g/dl (12.0-16.0); Mean Corpuscular Hemoglobin 25.6 pg (25.0-34.0); Mean Corpuscular Hgb Conc 32.1 g/dL (32.0-36.0); Mean Corpuscular Volume 79.6 fL (80.0-100.0); Mean Platelet Volume 10.9 fL (9.4-12.4); Platelet Count 180 K/uL (130-400); RDW Coefficient of Variation 13.7 % (11.5-14.5); Red Blood Count 3.09 M/uL (4.20-5.40); White Blood Count 14.85 K/ul (4.8-10.8)
[2023-11-29 20:42] VITALS: RESP 16; O2SAT 98
[2023-11-30 07:45] VITALS: BP 120/79; PULSE 74; TEMP 98.1
--- NOTE | 2023-11-30 08:50 | Obstetrical Progress Note ---
Date of Service November 30, 2023 Assessment & Plan (1) Encounter for induction of labor: doing well. will need FE, home later, no depression no ext pain Subjective Ambulation: ambulating normally Voiding: no voiding problems Passing Gas:: Yes Diet Tolerance:: regular diet Lochia:: Small Physical Exam Constitutional WD/WN, vitals as above well developed and well nourished Respiratory normal respiratory effort, lungs clear to auscultation normal respiratory effort Cardiovascular RRR, no murmur, no edema Gastrointestinal (Abdomen) normal bowel sounds, soft, nontender, no hepatosplenomegaly Results & Data Vital Signs (Past 12 Hours) Vital Signs Temp Pulse Resp BP Pulse Ox O2 Del Method 11/30/23 07:20 98.1 F 74 16 120/79 98 Room Air 11/30/23 03:00 16 11/30/23 00:30 98.2 F 69 16 125/75 98 Room Air
[2023-11-30 09:18] LABS: Hematocrit (blood only) 25.1 % (37.0-47.0); Hemoglobin 7.9 g/dl (12.0-16.0); Mean Corpuscular Hemoglobin 25.6 pg (25.0-34.0); Mean Corpuscular Hgb Conc 31.5 g/dL (32.0-36.0); Mean Corpuscular Volume 81.2 fL (80.0-100.0); Mean Platelet Volume 10.9 fL (9.4-12.4); Platelet Count 185 K/uL (130-400); RDW Coefficient of Variation 13.9 % (11.5-14.5); RDW Standard Deviation 40.3 fL (36.4-46.3); Red Blood Count 3.09 M/uL (4.20-5.40); White Blood Count 11.58 K/ul (4.8-10.8)
[2023-11-30] MEDS ORDERED: bisacodyL 5 MG TABEC PO SCH (20:00)
== END 2023-11-30 14:06 | disposition home or self-care (01) | DRG 806 ==
LOC: 4S1 10:21 → 4E2 11-29 03:28